=== PATIENT | male | born 1985 | race American Indian/Alaskan Native ===

== ENCOUNTER 2016-12-09 08:51 | Inpatient (IN) | payer SELFPAY ==
[2016-12-09] MEDS ORDERED: ZOFRAN IV ONE (10:29)
[2016-12-09] MEDS ORDERED: PEPCID IV ONE (10:29)
--- NOTE | 2016-12-09 10:31 | Emergency Department Report ---
ED General Adult HPI - General Chief complaint: Hyperglycemia Stated complaint: HIGH BLOOD SUGAR Time Seen by Provider: 12/09/16 10:24 Source: patient, EMS (ems notes not available at time of chart dictation), RN notes reviewed Mode of arrival: Stretcher Limitations: Physical Limitation - History of Present Illness Initial comments: This is a 31-year-old male, previously unknown to me. He does not have a primary care doctor. Has a past medical history of diabetes. Presents to the ER complaining of weakness, lethargy, nausea and vomiting, abdominal cramping. He reports compliance with his medications. He denies dietary indiscretions. He reports multiple episodes of nonbloody, nonbilious emesis. He is defecating normally. He has no testicular pain, and no irritative and obstructive urinary symptoms. No cough. -: Gradual Location: abdomen Severity scale (0 -10): 0 Quality: aching Consistency: constant Improves with: none Worsens with: none Associated Symptoms: loss of appetite, malaise, nausea/vomiting, weakness. denies: chest pain, cough, diaphoresis - Related Data Home Medications Medication Instructions Recorded Confirmed Last Taken Insulin Aspart Prot/Aspart 4 units SQ QACHS 12/09/16 12/09/16 Unknown [Novolog Mix 70/30] Insulin Detemir [Levemir VIAL] 20 unit SQ QHS 12/09/16 12/09/16 Unknown Previous Rx's Medication Instructions Recorded Last Taken Type Ciprofloxacin HCl [Cipro] 500 mg PO Q12H #20 tab 11/06/13 Unknown Rx HYDROcodone/APAP 7.5-325 [[place] 1 each PO Q6HR PRN #20 tablet 11/06/13 Unknown Rx 7.5/325 mg] Ondansetron [Zofran Odt] 4 mg PO Q4H PRN #10 tab.rapdis 11/06/13 Unknown Rx Allergies Allergy/AdvReac Type Severity Reaction Status Date / Time morphine Allergy Vomiting Verified 11/05/13 23:35 Penicillins Allergy Rash Verified 11/05/13 23:35 ED Review of Systems ROS: Stated complaint: HIGH BLOOD SUGAR Other details as noted in HPI Constitutional: malaise, weakness Eyes: denies: eye discharge ENT: denies: epistaxis Respiratory: denies: cough Cardiovascular: denies: chest pain Gastrointestinal: nausea, vomiting Genitourinary: denies: urgency, dysuria, testicular pain Musculoskeletal: myalgia Skin: denies: lesions Neurological: weakness Psychiatric: anxiety ED Past Medical Hx - Past Medical History Hx Diabetes: Yes Additional medical history: History of DKA - Surgical History Hx Cholecystectomy: Yes Additional Surgical History: thyroid surgery - Social History Smoking Status: Never Smoker - Medications Home Medications: Home Medications Medication Instructions Recorded Confirmed Last Taken Type Ciprofloxacin HCl [Cipro] 500 mg PO Q12H #20 tab 11/06/13 12/09/16 Unknown Rx HYDROcodone/APAP 7.5-325 [[place] 1 each PO Q6HR PRN #20 tablet 11/06/13 12/09/16 Unknown Rx 7.5/325 mg] Ondansetron [Zofran Odt] 4 mg PO Q4H PRN #10 tab.rapdis 11/06/13 12/09/16 Unknown Rx Insulin Aspart Prot/Aspart 4 units SQ QACHS 12/09/16 12/09/16 Unknown History [Novolog Mix 70/30] Insulin Detemir [Levemir VIAL] 20 unit SQ QHS 12/09/16 12/09/16 Unknown History ED Physical Exam - General Limitations: No Limitations General appearance: alert, in no apparent distress - Head Head exam: Present: atraumatic, normocephalic - Eye Eye exam: Present: normal appearance, EOMI. Absent: nystagmus - ENT ENT exam: Present: normal exam, normal orophraynx, mucous membranes moist, normal external ear exam - Neck Neck exam: Present: normal inspection, full ROM. Absent: tenderness, meningismus - Respiratory Respiratory exam: Present: normal lung sounds bilaterally. Absent: respiratory distress, wheezes, rales, rhonchi, stridor, decreased breath sounds - Cardiovascular Cardiovascular Exam: Present: normal rhythm, tachycardia, normal heart sounds. Absent: systolic murmur, diastolic murmur, rubs, gallop - GI/Abdominal GI/Abdominal exam: Present: soft, normal bowel sounds. Absent: distended, tenderness, guarding, rebound, rigid, pulsatile mass - Rectal Rectal exam: Present: deferred - Extremities Exam Extremities exam: Present: normal inspection, full ROM, normal capillary refill , other (numerous areas of discoloration in the upper and lower extremities. 2 + pulses noted in 4 extremities.). Absent: tenderness, pedal edema, joint swelling, calf tenderness - Back Exam Back exam: Present: normal inspection, full ROM. Absent: tenderness, CVA tenderness (R), CVA tenderness (L), muscle spasm, paraspinal tenderness, vertebral tenderness - Neurological Exam Neurological exam: Present: alert, oriented X3, other (Extraocular movements intact. Tongue midline. No facial droop. Facial sensation intact to light touch in the V1, V2, V3 distribution bilaterally. 5 and 5 strength in 4 extremities.. Sensation is intact to light touch in 4 extremities.). Absent: motor sensory deficit - Psychiatric Psychiatric exam: Present: normal affect, normal mood - Skin Skin exam: Present: warm, dry, intact, normal color. Absent: rash ED Course Vital Signs 12/09/16 12/09/16 12/09/16 09:01 09:09 09:15 Temperature 98.0 F Pulse Rate 116 H 116 H Respiratory 14 16 16 Rate Blood Pressure 173/86 Blood Pressure 173/86 [Right] O2 Sat by Pulse 96 96 Oximetry 12/09/16 12/09/16 12/09/16 10:00 11:00 11:20 Temperature Pulse Rate 106 H 114 H 113 H Respiratory 16 16 16 Rate Blood Pressure 148/86 151/82 151/82 Blood Pressure [Right] O2 Sat by Pulse 100 99 98 Oximetry 12/09/16 12/09/16 12:00 13:14 Temperature Pulse Rate 111 H 111 H Respiratory 12 15 Rate Blood Pressure 141/76 Blood Pressure 146/83 [Right] O2 Sat by Pulse 100 Oximetry - Reevaluation(s) Reevaluation #1: 12/09/16 11:25 Differential diagnosis: Diabetic ketoacidosis, hyperosmolar state, urinary tract infection, pneumonia Assessment and plan: 31-year-old male with nausea and vomiting, abdominal cramping, hyperglycemia, acidic venous pH, mostly diabetic ketoacidosis. IV fluids, symptomatically therapy, IV insulin ordered. Chest x-ray not consistent with pneumonia, urinalysis pending, basic metabolic panel is pending. Most likely to be admitted for presumed acidosis, diabetic ketoacidosis. Reevaluation #2: 12/09/16 11:47 Expected laboratory studies are consistent with hyperglycemic diabetic ketoacidosis. Acute renal failure is noted. Insulin drip ordered. Case discussed with the hospital physician, Dr. Mclain, who accepts the patient to his service. Case is discussed with critical care, Dr. Staples, who authorizes triaged to the ICU. ED Medical Decision Making - Lab Data Result diagrams: 12/09/16 10:58 12/09/16 11:54 Vital Signs 12/09/16 12/09/16 09:09 09:15 Temperature 98.0 F Pulse Rate 116 H Respiratory 16 16 Rate Blood Pressure 173/86 Blood Pressure 173/86 [Right] O2 Sat by Pulse 96 96 Oximetry Lab Results 12/09/16 12/09/16 12/09/16 Range/Units 09:25 10:58 10:58 WBC 10.1 (4.5-11.0) K/mm3 RBC 3.54 L (3.65-5.03) M/mm3 Hgb 10.9 L (11.8-15.2) gm/dl Hct 32.9 L (35.5-45.6) % MCV 93 (84-94) fl MCH 31 (28-32) pg MCHC 33 (32-34) % RDW 13.8 (13.2-15.2) % Plt Count 235 (140-440) K/mm3 Lymph % (Auto) 9.5 L (13.4-35.0) % [place] % (Auto) 3.4 (0.0-7.3) % Eos % (Auto) 0.1 (0.0-4.3) % Baso % (Auto) 0.3 (0.0-1.8) % Lymph # 1.0 L (1.2-5.4) K/mm3 [place] # 0.3 (0.0-0.8) K/mm3 Eos # 0.0 (0.0-0.4) K/mm3 Baso # 0.0 (0.0-0.1) K/mm3 Seg Neutrophils % 86.7 H (40.0-70.0) % Seg Neutrophils # 8.8 H (1.8-7.7) K/mm3 VBG pH 7.211 L (7.320-7.420) POC Glucose > 500 H (70-105) - EKG Data 12/09/16 11:26 Sinus tachycardia, motion artifact noted, premature ventricular contraction, borderline atrial enlargement, normal axis, QTC 440 ms, morphologically consistent with STEMI. - Radiology Data Radiology results: report reviewed, image reviewed X-ray chest negative Critical Care Time: Yes Critical care time in (mins) excluding proc time.: 35 Critical care attestation.: If time is entered above; I have spent that time in minutes in the direct care of this critically ill patient, excluding procedure time. Critical Care Time: Critical care time includes multiple bedside evaluations, interpretation of laboratory studies, radiology studies, time spent managing a critically ill patient with diabetic ketoacidosis requiring initiation of insulin drip. This excludes procedure time. ED Disposition Clinical Impression: DKA (diabetic ketoacidoses) Qualifiers: Diabetes mellitus type: other specified (including CHAI) Diabetes mellitus complication detail: without coma Qualified Code(s): E13.10 - Other specified diabetes mellitus with ketoacidosis without coma Acute renal failure Qualifiers: Acute renal failure type: unspecified Qualified Code(s): N17.9 - Acute kidney failure, unspecified Disposition: OP ADMITTED IP TO THIS HOSP Is pt being admited?: Yes Condition: Good
[2016-12-09] MEDS ORDERED: NACL 0.9% 1000 ML 2,000 ML ONE (10:46)
--- NOTE | 2016-12-09 10:46 | XRay Report ---
Single view chest: History: Weakness. Findings: Normal cardiomediastinal silhouette. Trachea is midline. No consolidation, pneumothorax or pleural effusion. Impression: No acute cardiopulmonary findings.
[2016-12-09] MEDS ORDERED: NACL 0.9% 500 ML IV SCH (11:00)
[2016-12-09 11:17] LABS: Basophils % (Auto) 0.3 % (0.0-1.8); Eosinophils % (Auto) 0.1 % (0.0-4.3); Hematocrit 32.9 % (35.5-45.6); Hemoglobin 10.9 gm/dl (11.8-15.2); Mean Corpuscular HGB Conc 33 % (32-34); Mean Corpuscular Hemoglobin 31 pg (28-32); Mean Corpuscular Volume 93 fl (84-94); Platelet Count 235 K/mm3 (140-440); Red Blood Count 3.54 M/mm3 (3.65-5.03); Red Cell Distribution Width 13.8 % (13.2-15.2); White Blood Count 10.1 K/mm3 (4.5-11.0)
[2016-12-09 11:38] LABS: BUN/Creatinine Ratio 14.82; Calcium 8.5 mg/dL (8.4-10.2); Chloride 93.2 mmol/L (98-107); Potassium 5.1 mmol/L (3.6-5.0)
[2016-12-09 11:41] LABS: B-Hydroxybutyrate 69.8 mg/dL (0.2-2.8)
[2016-12-09] MEDS ORDERED: D50W (25GM) IV PRN (11:50)
[2016-12-09] MEDS ORDERED: D5W/0.45% NACL/KCL 20 MEQ 1,000 ML IV SCH (12:00)
[2016-12-09] MEDS ORDERED: NovoLIN R 100 UNITS in NACL 0.9% 99 ML IV SCH (12:00)
[2016-12-09 12:24] LABS: BUN/Creatinine Ratio 16.4; Calcium 7.8 mg/dL (8.4-10.2); Chloride 100.4 mmol/L (98-107); Potassium 4.2 mmol/L (3.6-5.0)
[2016-12-09 12:33] LABS: Magnesium 2.5 mg/dL (1.7-2.3); Phosphorous 4.2 mg/dL (2.5-4.5)
--- NOTE | 2016-12-09 12:49 | Admit Criteria Form ---
Admission Criteria Documentation: DIABETES Clinical Indications for Admission to Inpatient Care (Place 'X' for any and all applicable criteria): Admission is indicated by presence of ALL (if I & II) or ANY ONE (if III or IV) of the following (1)(2)(3)(4): [ X]I. Diabetes is uncontrolled as indicated by ANY ONE of the following: [X ]a) Diabetic ketoacidosis as indicated by ALL of the following (8): [X ]i) Hyperglycemia (eg, plasma glucose greater than 200 mg /dL (11.1 mmol/L)) [ X]ii) Acidosis (eg, arterial pH less than 7.30, serum bicarbonate level less than 15 mEq/L (mmol/L)) [ X]iii) Moderate ketonuria or ketonemia [ ]b) Hyperglycemic hyperosmolar state as indicated by ALL of the following(9)(10): [ ]i) Neurologic dysfunction (eg, stupor, coma, hemiparesis , seizure)(13) [ ]ii) Plasma glucose greater than 600 mg/dL (33.3 mmol/L) [ ]iii) Serum osmolality greater than 320 mOsm/kg (mmol/kg) [ ]c) Severe signs or symptoms secondary to hyperglycemia indicated by ANY ONE of the following: [ ]i) Altered mental status(10) [ ]ii) Significant hypovolemia or dehydration [ ]iii) Intractable nausea or vomiting [ ]iv) Unexplained fever or severe infection [ ]v) Severe electrolyte abnormality (eg, hypokalemia, hyperkalemia, hypernatremia) [X ]II. Management at other levels of care (Also use Diabetes: Observation Care as appropriate) is not feasible because of ANY ONE of the following: [X ]a) Condition was not adequately corrected with treatment at other levels of care. [ ]b) Treatment at other levels of care is not appropriate because of condition severity (eg, hyperosmolar coma). [ ]III. Contraindications and/or Inappropriate clinical situations for Observational Care in patients with Diabetes, when ANY ONE of the following is required: [ ]a) Patient require specific diagnostic workup or therapeutic intervention 22 [ ]b) Patient with abnormal vital signs or altered mental status 23 [ ]IV. General contraindications and/or Inappropriate clinical situations for Observational Care in patients with Diabetes, when ANY ONE of the following is required: [ ]a) Prediction of prolongation of LOS based on ANY ONE of the following may be considered as a contraindication for observational care 2, 3, 4, 5, 6, 7, 8, 9, 10, 11 [ ]i) Age > 65 yrs. [ ]ii) Patient arriving by ambulance [ ]iii) Patient with high acuity [ ]iv) Patient requiring vital sign monitoring [ ]v) Patient on IV medication [ ]b) Systolic blood pressures 180mmHg 3,12 [ ]c) Patient with altered mental status including delirium and other alteration of consciousness, (3) [ ]d) Patient whose discharge disposition will be to a longterm home or rehabilitation home should not be managed in Emergency Department Observation Unit. CMS rule requires 3 days hospital stay before such placement.3,13 [ ]e) Patient with failure to thrive due to broad array of etiologies 3,16,17 [ ]f) Inability to ambulate 3,14 Extended stay beyond goal length of stay may be needed for(3)(20): [ ]a) Treatment of precipitating causes [ ]b) Development of hypoglycemia [ ]c) Complications of treatment [ ]d) Complications of decompensated diabetes (eg, acute gastric dilatation, persistent metabolic or neurologic derangement) [ ]e) Active Comorbidities [ ]f) Older patients( 65 years or older) The original [employer] content created by [employer] has been revised. The portions of the content which have been revised are identified through the use of italic text or in bold,and [facility] has neither reviewed nor approved the modified material. All other unmodified content is copyright [employer]. Please see references footnoted in the original [facility] edition 2016 Admission Criteria Met: Yes
--- NOTE | 2016-12-09 14:43 | Consultation ---
History of Present Illness - Reason for Consult Consult date: 12/09/16 DKA requiring insulin drip - History of Present Illness 31 y/o male admitted with DKA Medications and Allergies Allergies Allergy/AdvReac Type Severity Reaction Status Date / Time morphine Allergy Vomiting Verified 11/05/13 23:35 Penicillins Allergy Rash Verified 11/05/13 23:35 Home Medications Medication Instructions Recorded Confirmed Last Taken Type Ciprofloxacin HCl [Cipro] 500 mg PO Q12H #20 tab 11/06/13 12/09/16 Unknown Rx HYDROcodone/APAP 7.5-325 [[place] 1 each PO Q6HR PRN #20 tablet 11/06/13 12/09/16 Unknown Rx 7.5/325 mg] Ondansetron [Zofran Odt] 4 mg PO Q4H PRN #10 tab.rapdis 11/06/13 12/09/16 Unknown Rx Insulin Aspart Prot/Aspart 4 units SQ QACHS 12/09/16 12/09/16 Unknown History [Novolog Mix 70/30] Insulin Detemir [Levemir VIAL] 20 unit SQ QHS 12/09/16 12/09/16 Unknown History Active Meds: Active Medications Dextrose (D50w (25gm)) 0 ml IV PRN PRN PRN Reason: Hypoglycemia Heparin Sodium (Porcine) (Heparin) 5,000 unit SUB-Q Q12HR OXANA Insulin Human Regular 100 (units/ Sodium Chloride) 100 mls @ 1 mls/hr IV TITR OXANA; 1 UNITS/HR PRN Reason: Protocol Last Titration: 12/09/16 14:06 Dose: 6 units/hr Potassium Chloride/Dextrose/Sod Cl (D5w/0.45% Nacl/Kcl 20 Meq) 1,000 mls @ 125 mls/hr IV DIRECT OXANA Ondansetron HCl (Zofran) 4 mg IV Q4HR OXANA Sodium Chloride (Nacl 0.9% 500 Ml) 2,000 ml IV NOW OXANA Last Admin: 12/09/16 11:03 Dose: 2,000 ml Exam - Constitutional Vitals: Temp Pulse Resp BP Pulse Ox 98.0 F 111 H 15 158/94 100 12/09/16 09:09 12/09/16 14:00 12/09/16 14:27 12/09/16 14:00 12/09/16 14:27 Results - Labs CBC & Chem 7: 12/09/16 10:58 12/09/16 19:43 Labs: Abnormal lab results 12/09/16 Range/Units 14:04 POC Glucose 326 H (70-105) - Imaging and Cardiology Chest x-ray: image reviewed (clear CXR) Assessment and Plan 31 y/o male with DKA 1. q6hour BMP's 2. IVF resuscitation, once sugar is below 250, switch to D5, may need K replacement 3. NPO 4. Once anion gap is less than 14-15, transition to sub-q insulin and feed patient 5. Once tolerating PO, off drip and gap closed, transition to floor CCT 31 minutes
[2016-12-09] MEDS: ZOFRAN IV SCH ×3 (14:52→23:04)
[2016-12-09 14:56] LABS: BUN/Creatinine Ratio 15.6; Calcium 8.1 mg/dL (8.4-10.2); Chloride 109.7 mmol/L (98-107); Potassium 4.4 mmol/L (3.6-5.0)
--- NOTE | 2016-12-09 15:01 | History and Physical Report ---
History of Present Illness Date of examination: 12/09/16 Date of admission: 12/09/16 12:43 Chief complaint: Nausea vomiting History of present illness: Patient is 31-year-old man with history of insulin-dependent diabetes mellitus and DKA who presents with intractable severe acute onset worsening intermittent nausea and nonbloody vomiting that started today without any aggravating or relieving factors. The last week or so he had a cold that he does not have fevers chills. Patient denies any severe headaches or chest pain or shortness of breath. Patient states he was compliant with his medication. Past History Past Medical History: diabetes Past Surgical History: cholecystectomy, Other (thyroid surgery) Social history: full code. denies: smoking, alcohol abuse, prescription drug abuse, IV drug use Family history: diabetes, hypertension Medications and Allergies Allergies Allergy/AdvReac Type Severity Reaction Status Date / Time morphine Allergy Vomiting Verified 11/05/13 23:35 Penicillins Allergy Rash Verified 11/05/13 23:35 Home Medications Medication Instructions Recorded Confirmed Last Taken Type Ciprofloxacin HCl [Cipro] 500 mg PO Q12H #20 tab 11/06/13 12/09/16 Unknown Rx HYDROcodone/APAP 7.5-325 [[place] 1 each PO Q6HR PRN #20 tablet 11/06/13 12/09/16 Unknown Rx 7.5/325 mg] Ondansetron [Zofran Odt] 4 mg PO Q4H PRN #10 tab.rapdis 11/06/13 12/09/16 Unknown Rx Insulin Aspart Prot/Aspart 4 units SQ QACHS 12/09/16 12/09/16 Unknown History [Novolog Mix 70/30] Insulin Detemir [Levemir VIAL] 20 unit SQ QHS 12/09/16 12/09/16 Unknown History Active Meds: Active Medications Dextrose (D50w (25gm)) 0 ml IV PRN PRN PRN Reason: Hypoglycemia Heparin Sodium (Porcine) (Heparin) 5,000 unit SUB-Q Q12HR OXANA Insulin Human Regular 100 (units/ Sodium Chloride) 100 mls @ 1 mls/hr IV TITR OXANA; 1 UNITS/HR PRN Reason: Protocol Last Titration: 12/09/16 14:06 Dose: 6 units/hr Potassium Chloride/Dextrose/Sod Cl (D5w/0.45% Nacl/Kcl 20 Meq) 1,000 mls @ 125 mls/hr IV DIRECT OXANA Ondansetron HCl (Zofran) 4 mg IV Q4HR [facility] Sodium Chloride (Nacl 0.9% 500 Ml) 2,000 ml IV NOW [facility] Last Admin: 12/09/16 11:03 Dose: 2,000 ml Review of Systems All systems: negative (as HPI and all other ROS reviewed and negative.) Exam - Physical Exam Narrative exam: GEN: Ill-appearing NAD, AWAKE, ALERT, ORIENTATED 3 HEENT: NCAT, PERRL, EOMI, OP CLEAR but dry NECK: SUPPLE, NO THYROMEGALY, NO JVD, NO LAD CVS: Regular tachycardia, NORMAL S1S2 LUNGS/CHEST: CTA B, NORMAL CHEST EXPANSION B, GOOD AIR ENTRY B ABD: SOFT NTND, GBS, NO REBOUND OR GUARDING EXT/SKIN: NO SIGNIFICANT EDEMA OR RASH, severe mucous membranes dry MSK: FROM X 4 EXTREMITIES NEURO: CN 2-12 GROSSLY INTACT, NO FOCAL DEFICITS PSY: CALM - Constitutional Vitals: Temp Pulse Resp BP Pulse Ox 98.0 F 111 H 15 158/94 100 12/09/16 09:09 12/09/16 14:00 12/09/16 14:27 12/09/16 14:00 12/09/16 14:27 Results - Labs CBC & Chem 7: 12/09/16 10:58 12/09/16 11:54 Labs: Abnormal lab results 12/09/16 Range/Units 14:04 POC Glucose 326 H (70-105) - Imaging and Cardiology Chest x-ray: report reviewed Assessment and Plan Patient is 31-year-old man with history of insulin-dependent diabetes mellitus and DKA who presents with intractable severe acute onset worsening intermittent nausea and nonbloody vomiting that started today without any aggravating or relieving factors. The last week or so he had a cold that he does not have fevers chills. Patient denies any severe headaches or chest pain or shortness of breath. Patient states he was compliant with his medication. 1. DKA: IV fluids, insulin drip protocol 2. Acute renal failure due to vasomotor nephropathy present on admission: Consult nephrology, get renal ultrasound and hydrate 3. Urinary tract infection with sepsis: Cultures, IV antibiotics 4. DVT prophylaxis: Subcutaneous heparin 5. GI prophylaxis: Protonix Full code Disposition: Inpatient care to the ICU, consult automatic spinning lathe setter per protocol
[2016-12-09 15:41] LABS: BUN/Creatinine Ratio 15.2; Chloride 108.1 mmol/L (98-107); Potassium 4.3 mmol/L (3.6-5.0)
[2016-12-09] MEDS ORDERED: TYLENOL PR ONE (17:00)
[2016-12-09] MEDS ORDERED: LEVAQUIN 500MG/100ML 100 ML IV SCH (17:00)
[2016-12-09] MEDS ORDERED: PHENERGAN PR ONE (17:00)
[2016-12-09 17:53] LABS: BUN/Creatinine Ratio 14.8; Calcium 8.5 mg/dL (8.4-10.2); Chloride 108.2 mmol/L (98-107); Potassium 4.4 mmol/L (3.6-5.0)
[2016-12-09 21:02] LABS: BUN/Creatinine Ratio 14.4; Calcium 8.2 mg/dL (8.4-10.2); Chloride 113.6 mmol/L (98-107); Potassium 4.8 mmol/L (3.6-5.0)
--- NOTE | 2016-12-09 21:03 | Ultrasound Report ---
FINAL REPORT PROCEDURE: US RENAL BILAT TECHNIQUE: Real-time sonography in multiple planes of the kidneys, ureters and urinary bladder was performed with image documentation. CPT 62095 HISTORY: Acute renal failure COMPARISON: No prior studies are available for comparison. FINDINGS: The right kidney measures 10.0 x 4.8 x 5.0 centimeters. The left kidney measures 11.2 x 4.8 x 5.0 centimeters. There is no evidence of hydronephrosis or echogenic calculi in the left or right kidney. Both kidneys show no contour abnormality by ultrasound. Limited survey images of the urinary bladder show no ultrasound abnormality IMPRESSION: Both kidneys show no ultrasound abnormality..
--- NOTE | 2016-12-09 21:43 | Consultation ---
History of Present Illness - Reason for Consult Consult date: 12/09/16 acute renal failure - History of Present Illness Patient is 31 year old AAM with history significant for insulin-dependent diabetes mellitus and DKA who presents with intractable nausea, vomiting and feeling unwell that started yesterday. Patient had cold symptoms last week. On admission his blood sugar was high with positive ketone and creatinine of 2.9. Since then the creatinine has improved to 2.5 and remain stable. His creatinine was normal about 3 years ago. Denies any prior kidney problem. His pcp is at [facility]. No h/o fever, rash, dysuria, hematuria, jaundice, dizziness , syncope, leg swelling, cp, sob, cough or confusion. Past History Past Medical History: diabetes Past Surgical History: cholecystectomy, Other (thyroid surgery) Social history: full code. denies: smoking, alcohol abuse, prescription drug abuse, IV drug use Family history: diabetes, hypertension Medications and Allergies Allergies Allergy/AdvReac Type Severity Reaction Status Date / Time morphine Allergy Vomiting Verified 11/05/13 23:35 Penicillins Allergy Rash Verified 11/05/13 23:35 Home Medications Medication Instructions Recorded Confirmed Last Taken Type Ciprofloxacin HCl [Cipro] 500 mg PO Q12H #20 tab 11/06/13 12/09/16 Unknown Rx HYDROcodone/APAP 7.5-325 [[place] 1 each PO Q6HR PRN #20 tablet 11/06/13 12/09/16 Unknown Rx 7.5/325 mg] Ondansetron [Zofran Odt] 4 mg PO Q4H PRN #10 tab.rapdis 11/06/13 12/09/16 Unknown Rx Insulin Aspart Prot/Aspart 4 units SQ QACHS 12/09/16 12/09/16 Unknown History [Novolog Mix 70/30] Insulin Detemir [Levemir VIAL] 20 unit SQ QHS 12/09/16 12/09/16 Unknown History Active Meds: Active Medications Dextrose (D50w (25gm)) 0 ml IV PRN PRN PRN Reason: Hypoglycemia Heparin Sodium (Porcine) (Heparin) 5,000 unit SUB-Q Q12HR OXANA Insulin Human Regular 100 (units/ Sodium Chloride) 100 mls @ 1 mls/hr IV TITR OXANA; 1 UNITS/HR PRN Reason: Protocol Last Titration: 12/09/16 18:14 Dose: 0.5 units/hr Potassium Chloride/Dextrose/Sod Cl (D5w/0.45% Nacl/Kcl 20 Meq) 1,000 mls @ 125 mls/hr IV DIRECT [facility] Last Admin: 12/09/16 16:56 Dose: 125 mls/hr Levofloxacin/Dextrose (Levaquin 500mg/100ml) 100 mls @ 100 mls/hr IV Q48H [facility] PRN Reason: Protocol Last Admin: 12/09/16 17:54 Dose: 100 mls/hr Ondansetron HCl (Zofran) 4 mg IV Q4HR [facility] Last Admin: 12/09/16 17:58 Dose: 4 mg Pantoprazole Sodium (Protonix) 40 mg IV QDAY [facility] Sodium Chloride (Nacl 0.9% 500 Ml) 2,000 ml IV NOW [facility] Last Admin: 12/09/16 11:03 Dose: 2,000 ml Review of Systems Constitutional: fatigue, malaise, no weight loss, no weight gain Ears, nose, mouth and throat: no sinus pressure, no sinus pain, no epistaxis Cardiovascular: no chest pain, no orthopnea, no edema, no syncope, no lightheadedness, no shortness of breath Respiratory: no cough, no hemoptysis, no shortness of breath Gastrointestinal: nausea, vomiting, no abdominal pain, no diarrhea, no melena Genitourinary Male: no dysuria, no hematuria Rectal: no bleeding Musculoskeletal: no neck stiffness, no redness of joints Integumentary: no rash, no jaundice Neurological: no head injury, no paralysis, no syncope Psychiatric: no confusion Endocrine: polyuria Hematologic/Lymphatic: no easy bruising, no easy bleeding Allergic/Immunologic: no wheezing Exam - Vital Signs Vital signs: Vital Signs Pulse Resp 116 H 14 12/09/16 09:01 12/09/16 09:01 - General Appearance General appearance: well-developed, well-nourished, other (no distress) EENT: PERRL, mucous membranes dry, hearing intact, vision intact Neck: Present: neck supple, trachea midline Respiratory: Clear to Ascultation Heart: regular, normal heart rate, S1S2 Gastrointestinal: Present: normoactive bowel sounds. Absent: tenderness, distended, guarding Integumentary: no rash, warm and dry Neurologic: no focal deficit, no asterixis, alert and oriented x3 Musculoskeletal: Present: other (no edema) Psychiatric: mood/affect appropriate, cooperative Results - Lab Results 12/09/16 10:58 12/09/16 19:43 Most recent lab results Calcium 8.2 mg/dL (8.4-10.2) L 12/09/16 19:43 Phosphorus 4.2 mg/dL (2.5-4.5) 12/09/16 11:54 Magnesium 2.5 mg/dL (1.7-2.3) H 12/09/16 11:54 Assessment and Plan - Patient Problems (1) TROY (acute kidney injury) Current Visit: Yes Status: Acute Plan to address problem: TROY likely in the setting of DKA. Continue IV fluids. Monitor renal function. Suspect some degree of CKD. (2) DKA (diabetic ketoacidoses) Current Visit: Yes Status: Acute Qualifiers: Diabetes mellitus type: other specified (including CHAI) Diabetes mellitus complication detail: without coma Qualified Code(s): E13.10 - Other specified diabetes mellitus with ketoacidosis without coma Plan to address problem: On Insulin drip and IV fluids. (3) Volume depletion Current Visit: Yes Status: Acute
[2016-12-10] MEDS: ZOFRAN IV SCH (02:29)
[2016-12-10] MEDS ORDERED: PROTONIX IV SCH (10:00)
[2016-12-10] MEDS ORDERED: NOVOLOG SUB-Q ONE (11:24)
--- NOTE | 2016-12-10 14:09 | Progress Note ---
Assessment and Plan 31 y/o male with DKA 1. Ok with long acting insulin 2. Stop Insulin drip 3. Feed patient 4. If tolerates PO, transition to the floor. CCT 31 minutes Subjective Date of service: 12/10/16 Interval history: No acute events. Anion Gap closed. Objective - Constitutional General appearance: Present: no acute distress, well-nourished - EENT Eyes: PERRL, EOM intact - Neck Neck: supple - Respiratory Respiratory effort: normal Respiratory: bilateral: CTA - Cardiovascular Rhythm: regular Heart Sounds: Present: S1 & S2 Extremities: no ischemia - Gastrointestinal General gastrointestinal: Present: soft Rectal Exam: deferred - Genitourinary Male genitourinary: deferred - Musculoskeletal Musculoskeletal: strength equal bilaterally - Neurologic Neurologic: CNII-XII intact - Labs CBC & Chem 7: 12/09/16 10:58 12/09/16 19:43 Labs: Abnormal lab results 12/09/16 12/09/16 12/09/16 Range/Units 14:04 14:24 14:47 Sodium 147 H D (137-145) mmol/L Chloride 109.7 H 108.1 H (98-107) mmol/L Carbon Dioxide 21 L (22-30) mmol/L BUN 39 H 38 H (9-20) mg/dL Creatinine 2.5 H 2.5 H (0.8-1.5) mg/dL Glucose 326 H 281 H (75-100) mg/dL POC Glucose 326 H (70-105) Calcium 8.1 L 8.0 L (8.4-10.2) mg/dL 12/09/16 12/09/16 12/09/16 Range/Units 14:49 16:14 16:59 Sodium (137-145) mmol/L Chloride 108.2 H (98-107) mmol/L Carbon Dioxide (22-30) mmol/L BUN 37 H (9-20) mg/dL Creatinine 2.5 H (0.8-1.5) mg/dL Glucose 144 H (75-100) mg/dL POC Glucose 287 H 170 H (70-105) Calcium (8.4-10.2) mg/dL 12/09/16 12/09/16 12/09/16 Range/Units 17:14 19:43 20:07 Sodium 150 H (137-145) mmol/L Chloride 113.6 H (98-107) mmol/L Carbon Dioxide 21 L (22-30) mmol/L BUN 36 H (9-20) mg/dL Creatinine 2.5 H (0.8-1.5) mg/dL Glucose 116 H (75-100) mg/dL POC Glucose 139 H 130 H (70-105) Calcium 8.2 L (8.4-10.2) mg/dL 12/09/16 12/09/16 12/10/16 Range/Units 21:04 23:14 00:04 Sodium (137-145) mmol/L Chloride (98-107) mmol/L Carbon Dioxide (22-30) mmol/L BUN (9-20) mg/dL Creatinine (0.8-1.5) mg/dL Glucose (75-100) mg/dL POC Glucose 119 H 115 H 126 H (70-105) Calcium (8.4-10.2) mg/dL 12/10/16 12/10/16 12/10/16 Range/Units 00:59 02:03 03:10 Sodium (137-145) mmol/L Chloride (98-107) mmol/L Carbon Dioxide (22-30) mmol/L BUN (9-20) mg/dL Creatinine (0.8-1.5) mg/dL Glucose (75-100) mg/dL POC Glucose 132 H 153 H 120 H (70-105) Calcium (8.4-10.2) mg/dL 12/10/16 12/10/16 12/10/16 Range/Units 05:14 06:09 13:19 Sodium (137-145) mmol/L Chloride (98-107) mmol/L Carbon Dioxide (22-30) mmol/L BUN (9-20) mg/dL Creatinine (0.8-1.5) mg/dL Glucose (75-100) mg/dL POC Glucose 176 H 196 H 46 L (70-105) Calcium (8.4-10.2) mg/dL
[2016-12-10 14:49] LABS: BUN/Creatinine Ratio 11.73; Calcium 7.9 mg/dL (8.4-10.2); Chloride 110.2 mmol/L (98-107); Phosphorous 3.3 mg/dL (2.5-4.5); Potassium 4.2 mmol/L (3.6-5.0)
--- NOTE | 2016-12-10 16:03 | Discharge Summary ---
Providers - Providers Date of Admission: 12/09/16 12:43 Attending physician: ADELAIDA CONNOLLY 12/09/16 15:01 Consult to Physician [CONS] Routine Consulting Provider: BLANCA RAUSCH Reason For Exam: arf Place consult to:: Marlys MAURICIO Notified:: yes Phone number called:: [phone] Was contact made?: Yes Time called:: 15:30 Primary care physician: ROCK LA MD Hospitalization Condition: Good Disposition: STILL A PATIENT Exam - Constitutional Vitals: Temp Pulse Resp BP Pulse Ox 98.3 F 87 13 133/82 100 12/10/16 00:00 12/10/16 15:01 12/10/16 15:01 12/10/16 15:01 12/10/16 15:01 Plan Follow up with: ROCK LA MD [Primary Care Provider] - 3-5 Days
[2016-12-10 16:15] VITALS: BP 144/100
[2016-12-10] MEDS ORDERED: NOVOLOG SUB-Q SCH (16:30)
[2016-12-10] MEDS ORDERED: HEPARIN SUB-Q SCH (22:00)
[2016-12-11] MEDS ORDERED: PROTONIX PO SCH (10:00)
== END 2016-12-10 17:22 | disposition home or self-care (01) | DRG 871 ==
LOC: ED 08:51 → CC1 12:43
PROVIDERS: ADMIT Internal Medicine; ATTEND Internal Medicine
DX: A41.9 Sepsis, unspecified organism (principal); N17.0 Acute kidney failure with tubular necrosis; E13.10 Other specified diabetes mellitus with ketoacidosis without coma; N39.0 Urinary tract infection, site not specified; E86.9 Volume depletion, unspecified; Z88.6 Allergy status to analgesic agent; Z88.0 Allergy status to penicillin; Z79.4 Long term (current) use of insulin; Z90.49 Acquired absence of other specified parts of digestive tract; Z83.3 Family history of diabetes mellitus; Z82.49 Family history of ischemic heart disease and other diseases of the circulatory system
CPT/HCPCS: 36415; 71010; 76770; 80048; 82010; 82805; 82962; 83735; 84100; 85025; 87040; 96374; 96375; 99291; C9113; J1815; J1956; J2405; J7030

== ENCOUNTER 2017-12-28 11:49 | Inpatient (IN) | payer SELFPAY ==
[2017-12-28 12:56] LABS: Basophils % (Auto) 0.4 % (0.0-1.8); Eosinophils # (Auto) 0.1 K/mm3 (0.0-0.4); Eosinophils % (Auto) 0.8 % (0.0-4.3); Hematocrit 39.3 % (35.5-45.6); Hemoglobin 13.2 gm/dl (11.8-15.2); Lymphocytes # (Auto) 0.7 K/mm3 (1.2-5.4); Lymphocytes % (Auto) 7.5 % (13.4-35.0); Mean Corpuscular HGB Conc 34 % (32-34); Mean Corpuscular Hemoglobin 29 pg (28-32); Mean Corpuscular Volume 87 fl (84-94); Monocytes # (Auto) 0.4 K/mm3 (0.0-0.8); Monocytes % (Auto) 4.1 % (0.0-7.3); Platelet Count 145 K/mm3 (140-440); Red Cell Distribution Width 14.1 % (13.2-15.2)
[2017-12-28 13:06] LABS: Bacteria,Urine 1+ /HPF (Negative); Bilirubin,Urine NEG (Negative); Blood,Urine NEG (Negative); Color,Urine Yellow (Yellow); Mucus,Urine FEW /HPF; Nitrite,Urine NEG (Negative); Urobilinogen,Urine < 2.0 mg/dL (<2.0)
[2017-12-28 13:07] LABS: Protein,Urine >500 mg/dL (Negative)
[2017-12-28 13:13] LABS: Calcium 7.2 mg/dL (8.4-10.2)
[2017-12-28] MEDS ORDERED: D50W (25GM) Syringe IV ONE (17:50)
[2017-12-28] MEDS ORDERED: PROVENTIL IH ONE (17:52)
[2017-12-28] MEDS ORDERED: NACL 0.9% 1000 ML 1,000 ML IV ONE ×2 (17:58→19:27)
[2017-12-28] MEDS ORDERED: CALCIUM GLUCONATE 2,000 MG in NACL 0.9% 100 ML IV ONE (18:57)
[2017-12-28] MEDS ORDERED: ZOFRAN ONE (18:59)
--- NOTE | 2017-12-28 19:55 | Emergency Department Report ---
- General Chief complaint: Hyperglycemia Stated complaint: FLU LIKE SYMPTOMS Time Seen by Provider: 12/28/17 16:54 Source: patient (Generalized weakness and nausea started a couple of days ago after his dialysis. He is on dialysis three times a week. He missed Thursday session because of illness. He is on Levemir and Humalog for DM but did not take Humalog since Thursday because of low blood sugar. However, this morning his blood sugar was high.), EMS Mode of arrival: Ambulatory Limitations: No Limitations - History of Present Illness Severity scale (0 -10): 0 - Related Data Home Medications Medication Instructions Recorded Confirmed Last Taken Insulin Aspart Prot/Aspart(Nf) 4 units SQ QACHS 12/09/16 12/09/16 Unknown [Novolog Mix 70/30] Insulin Detemir [Levemir VIAL] 20 unit SQ QHS 12/09/16 12/09/16 Unknown Previous Rx's Medication Instructions Recorded Last Taken Type Ciprofloxacin HCl [Cipro] 500 mg PO Q12H #20 tab 11/06/13 Unknown Rx HYDROcodone/APAP 7.5-325 [[place] 1 each PO Q6HR PRN #20 tablet 11/06/13 Unknown Rx 7.5/325 mg] Ondansetron [Zofran Odt] 4 mg PO Q4H PRN #10 tab.rapdis 11/06/13 Unknown Rx Allergies Allergy/AdvReac Type Severity Reaction Status Date / Time Penicillins Allergy Rash Verified 11/05/13 23:35 ED Review of Systems ROS: Stated complaint: FLU LIKE SYMPTOMS Other details as noted in HPI Constitutional: denies: chills, fever Eyes: denies: eye pain, eye discharge, vision change ENT: denies: ear pain, throat pain Respiratory: denies: cough, shortness of breath, wheezing Cardiovascular: denies: chest pain, palpitations Endocrine: no symptoms reported Gastrointestinal: nausea, vomiting. denies: abdominal pain, diarrhea Genitourinary: denies: urgency, dysuria Musculoskeletal: denies: back pain, joint swelling, arthralgia Skin: denies: rash, lesions Neurological: weakness. denies: headache, paresthesias Psychiatric: denies: anxiety, depression Hematological/Lymphatic: denies: easy bleeding, easy bruising ED Past Medical Hx - Past Medical History Previous Medical History?: Yes Hx Hypertension: Yes Hx Congestive Heart Failure: No Hx Diabetes: Yes Hx Renal Disease: Yes (tues, thurs, sat) Hx Asthma: No Hx COPD: No Additional medical history: History of DKA - Surgical History Past Surgical History?: Yes Hx Cholecystectomy: Yes Additional Surgical History: thyroid surgery. vas cath to right chest wall - Social History Smoking Status: Never Smoker Substance Use Type: None - Medications Home Medications: Home Medications Medication Instructions Recorded Confirmed Last Taken Type Ciprofloxacin HCl [Cipro] 500 mg PO Q12H #20 tab 11/06/13 12/09/16 Unknown Rx HYDROcodone/APAP 7.5-325 [[place] 1 each PO Q6HR PRN #20 tablet 11/06/13 12/09/16 Unknown Rx 7.5/325 mg] Ondansetron [Zofran Odt] 4 mg PO Q4H PRN #10 tab.rapdis 11/06/13 12/09/16 Unknown Rx Insulin Aspart Prot/Aspart(Nf) 4 units SQ QACHS 12/09/16 12/09/16 Unknown History [Novolog Mix 70/30] Insulin Detemir [Levemir VIAL] 20 unit SQ QHS 12/09/16 12/09/16 Unknown History ED Physical Exam - General Limitations: No Limitations General appearance: alert, in no apparent distress - Head Head exam: Present: atraumatic, normocephalic - Eye Eye exam: Present: normal appearance - ENT ENT exam: Present: mucous membranes dry - Neck Neck exam: Present: normal inspection - Respiratory Respiratory exam: Present: normal lung sounds bilaterally. Absent: respiratory distress - Cardiovascular Cardiovascular Exam: Present: regular rate, normal rhythm. Absent: systolic murmur, diastolic murmur, rubs, gallop - GI/Abdominal GI/Abdominal exam: Present: soft, normal bowel sounds - Rectal Rectal exam: Present: deferred - Extremities Exam Extremities exam: Present: normal inspection - Back Exam Back exam: Present: normal inspection - Neurological Exam Neurological exam: Present: alert, oriented X3 - Psychiatric Psychiatric exam: Present: normal affect, normal mood - Skin Skin exam: Present: warm, dry, intact, normal color. Absent: rash ED Course Vital Signs 12/28/17 12/28/17 12/28/17 11:57 16:50 17:00 Temperature 98.7 F Pulse Rate 99 H 96 H 93 H Pulse Rate [ Anterior Bilateral Throughout] Respiratory 18 18 15 Rate Respiratory Rate [Anterior Bilateral Throughout] Blood Pressure 157/107 171/126 Blood Pressure [Left] O2 Sat by Pulse 99 99 99 Oximetry 12/28/17 12/28/17 12/28/17 17:15 17:30 17:46 Temperature Pulse Rate 91 H 95 H 94 H Pulse Rate [ Anterior Bilateral Throughout] Respiratory 13 10 L 12 Rate Respiratory Rate [Anterior Bilateral Throughout] Blood Pressure 178/120 183/125 183/125 Blood Pressure [Left] O2 Sat by Pulse 99 99 Oximetry 12/28/17 12/28/17 12/28/17 18:00 18:16 18:27 Temperature Pulse Rate 96 H 95 H Pulse Rate [ 99 H Anterior Bilateral Throughout] Respiratory 14 12 Rate Respiratory 20 Rate [Anterior Bilateral Throughout] Blood Pressure 183/125 183/125 Blood Pressure [Left] O2 Sat by Pulse 99 99 Oximetry 12/28/17 12/28/17 12/28/17 18:28 18:30 18:37 Temperature 98.0 F Pulse Rate 98 H 99 H Pulse Rate [ 97 H Anterior Bilateral Throughout] Respiratory 15 13 Rate Respiratory 18 Rate [Anterior Bilateral Throughout] Blood Pressure 174/105 Blood Pressure 182/107 [Left] O2 Sat by Pulse 99 100 Oximetry 12/28/17 12/28/17 12/28/17 18:45 19:00 19:15 Temperature Pulse Rate 107 H 109 H 110 H Pulse Rate [ Anterior Bilateral Throughout] Respiratory 15 11 L 15 Rate Respiratory Rate [Anterior Bilateral Throughout] Blood Pressure 186/113 167/105 160/102 Blood Pressure [Left] O2 Sat by Pulse 100 99 99 Oximetry 12/28/17 12/28/17 12/28/17 19:30 19:46 20:00 Temperature Pulse Rate 110 H 108 H 112 H Pulse Rate [ Anterior Bilateral Throughout] Respiratory 15 15 14 Rate Respiratory Rate [Anterior Bilateral Throughout] Blood Pressure 160/102 160/102 160/102 Blood Pressure [Left] O2 Sat by Pulse 98 98 98 Oximetry ED Medical Decision Making - Lab Data Result diagrams: 12/28/17 12:21 12/28/17 19:30 Critical care attestation.: If time is entered above; I have spent that time in minutes in the direct care of this critically ill patient, excluding procedure time. ED Disposition Clinical Impression: Hyperglycemia due to type 1 diabetes mellitus Renal failure Qualifiers: Renal failure chronicity: chronic Chronic kidney disease stage: unspecified stage Qualified Code(s): N18.9 - Chronic kidney disease, unspecified Disposition: OP ADMIT IP TO THIS HOSP Is pt being admited?: Yes Does the pt Need Aspirin: No Condition: Stable Instructions: Diabetes Mellitus Type 2 in Adults (ED) Referrals: PRIMARY CARE, [Primary Care Provider] - 3-5 Days Time of Disposition: 21:59
[2017-12-28 20:09] LABS: Calcium 7.6 mg/dL (8.4-10.2)
--- NOTE | 2017-12-28 22:35 | History and Physical Report ---
History of Present Illness Date of examination: 12/28/17 History of present illness: 32-year-old man with a history of end-stage renal disease on dialysis, Thursday, , Thursday, diabetes comes to emergency room because he missed dialysis on Thursday because he started feeling weak, nausea vomiting 4-5 times a day. No recent antibiotic, no fever no chills Review Of Systems: Constitutional: no weight loss Ears, eyes, nose, mouth and throat: no nasal congestion, no nasal discharge, no sinus pressure, blurry vision, diplopia Neck: No neck pain or rigidity. Cardiovascular: chest pain, orthopnea, palpitations Respiratory: No shortness of breath, cough Gastrointestinal: abdominal pain, hematochezia Genitourinary : no dysuria, frequency , hematuria Musculoskeletal: no muscle ache Integumentary: no rash, no pruritis Neurological: no parathesias, focal weakness Endocrine: no cold or heat intolerance, no polyuria or polydipsia Hematologic/Lymphatic: no easy bruising, no easy bleeding, no gland swelling Allergic/Immunologic: no urticaria, no angioedema. PAST MEDICAL HISTORY:end-stage renal disease on dialysis, diabetes PAST SURGICAL HISTORY: Cholecystectomy, thyroidectomy FAMILY HISTORY: Hypertension SOCIAL HISTORY: Denies alcohol, tobacco, drugs Medications and Allergies Allergies Allergy/AdvReac Type Severity Reaction Status Date / Time Penicillins Allergy Rash Verified 11/05/13 23:35 Home Medications Medication Instructions Recorded Confirmed Last Taken Type Ciprofloxacin HCl [Cipro] 500 mg PO Q12H #20 tab 11/06/13 12/28/17 Unknown Rx HYDROcodone/APAP 7.5-325 [[place] 1 each PO Q6HR PRN #20 tablet 11/06/13 12/28/17 Unknown Rx 7.5/325 mg] Ondansetron [Zofran Odt] 4 mg PO Q4H PRN #10 tab.rapdis 11/06/13 12/28/17 Unknown Rx Insulin Aspart Prot/Aspart(Nf) 4 units SQ QACHS 12/09/16 12/28/17 Unknown History [Novolog Mix 70/30] Insulin Detemir [Levemir VIAL] 20 unit SQ QHS 12/09/16 12/28/17 Unknown History Active Meds: Active Medications Sodium Chloride (Nacl 0.9% 1000 Ml) 1,000 mls @ 125 mls/hr IV ONCE ONE Stop: 12/29/17 03:26 Last Admin: 12/28/17 19:27 Dose: 125 mls/hr Exam - Physical Exam Narrative exam: Gen. appearance: Patient lying in bed in no acute distress HEENT: Normocephalic/atraumatic, pupils equal round reactive to light, extra alkaline movement intact, no scleral icterus, no JVD or thyromegaly or nodule, neck is supple, mucous membrane moist, no erythema or exudate Heart: S1-S2, regular rate and rhythm Lungs: Decreased breath sounds bilateral breathing comfortable Abdomen: Positive bowel sounds, nontender, nondistended, no organomegaly Extremities: No edema, cyanosis, clubbing Neuro:: Oriented 3 , cranial nerves II-12 intact, speech, motor intact Skin: No rash, nodules, warm dry - Constitutional Vitals: Temp Pulse Resp BP Pulse Ox 98.0 F 110 H 19 160/102 99 12/28/17 18:28 12/28/17 22:00 12/28/17 22:00 12/28/17 22:00 12/28/17 22:00 Results - Labs CBC & Chem 7: 12/28/17 12:21 12/28/17 19:30 Labs: Abnormal lab results 12/28/17 12/28/17 12/28/17 Range/Units 12:21 12:21 12:21 Lymph % (Auto) 7.5 L (13.4-35.0) % Lymph # 0.7 L (1.2-5.4) K/mm3 Seg Neutrophils % 87.2 H (40.0-70.0) % Seg Neutrophils # 8.5 H (1.8-7.7) K/mm3 VBG pH 7.295 L (7.320-7.420) Sodium 133 L (137-145) mmol/L Potassium 6.5 H* (3.6-5.0) mmol/L Chloride 96.7 L (98-107) mmol/L BUN 47 H (9-20) mg/dL Creatinine 8.4 H (0.8-1.5) mg/dL Glucose 366 H (75-100) mg/dL POC Glucose (70-105) Calcium 7.2 L (8.4-10.2) mg/dL Urine WBC (Auto) (0.0-6.0) /HPF 02/19/18 02/19/18 02/19/18 Range/Units 12:24 17:34 19:30 Lymph % (Auto) (13.4-35.0) % Lymph # (1.2-5.4) K/mm3 Seg Neutrophils % (40.0-70.0) % Seg Neutrophils # (1.8-7.7) K/mm3 VBG pH (7.320-7.420) Sodium (137-145) mmol/L Potassium (3.6-5.0) mmol/L Chloride (98-107) mmol/L BUN 50 H (9-20) mg/dL Creatinine 9.1 H (0.8-1.5) mg/dL Glucose 65 L (75-100) mg/dL POC Glucose 223 H (70-105) Calcium 7.6 L (8.4-10.2) mg/dL Urine WBC (Auto) 29.0 H (0.0-6.0) /HPF Assessment and Plan Assessment Fluid overload End-stage renal disease on dialysis Diarrhea Diabetes Plan Admit to medicine Consult renal for dialysis Send stool for studies, check fingersticks and initiate insulin sliding scale DVT prophylaxis
[2017-12-28] MEDS ORDERED: D50W (25GM) Syringe IV PRN (23:02)
[2017-12-28] MEDS ORDERED: TYLENOL PO PRN (23:02)
[2017-12-28] MEDS ORDERED: PERCOCET 5/325 PO PRN (23:02)
[2017-12-28] MEDS ORDERED: DULCOLAX PR PRN (23:02)
[2017-12-28] MEDS ORDERED: ZOFRAN IV PRN (23:02)
[2017-12-29] MEDS: APRESOLINE IV PRN ×2 (02:44→12:34)
[2017-12-29 05:57] LABS: Basophils % (Auto) 0.6 % (0.0-1.8); Eosinophils # (Auto) 0.2 K/mm3 (0.0-0.4); Eosinophils % (Auto) 2.6 % (0.0-4.3); Hemoglobin 10.4 gm/dl (11.8-15.2); Lymphocytes # (Auto) 1.6 K/mm3 (1.2-5.4); Lymphocytes % (Auto) 21.6 % (13.4-35.0); Mean Corpuscular HGB Conc 34 % (32-34); Mean Corpuscular Hemoglobin 29 pg (28-32); Mean Corpuscular Volume 87 fl (84-94); Monocytes # (Auto) 0.6 K/mm3 (0.0-0.8); Monocytes % (Auto) 7.2 % (0.0-7.3); Platelet Count 106 K/mm3 (140-440); Red Blood Count 3.56 M/mm3 (3.65-5.03); Red Cell Distribution Width 14.3 % (13.2-15.2)
[2017-12-29 06:15] LABS: Calcium 6.9 mg/dL (8.4-10.2)
[2017-12-29] MEDS ORDERED: NACL 0.9% 100 ML IV PRN ×2 (09:20→11:50)
[2017-12-29] MEDS ORDERED: HEPARIN 10,000 UNITS/10 ML IV PRN (09:20)
[2017-12-29] MEDS ORDERED: HEPARIN IV PRN (09:20)
--- NOTE | 2017-12-29 09:22 | Consultation ---
History of Present Illness - Reason for Consult Consult date: 12/29/17 end stage renal disease - History of Present Illness Mr. Barker is a 32 yo w/ ESRD on HD TTS who reports being in usual state of health until when he began experiencing nausea/vomiting. He denies sick contacts, change in eating pattern. He denies abdominal pain, diarrhea. Mr. Barker also reports generalized weakness and states that he was unable to go to dialysis on Thursday. He arranged to go on Thursday but continued to feel poorly. He presented to the ED for further evaluation. Past History Past Medical History: diabetes, ESRD (x 2-3 months), hypertension Past Surgical History: No surgical history Social history: no significant social history Medications and Allergies Allergies Allergy/AdvReac Type Severity Reaction Status Date / Time Penicillins Allergy Rash Verified 11/05/13 23:35 Home Medications Medication Instructions Recorded Confirmed Last Taken Type Ciprofloxacin HCl [Cipro] 500 mg PO Q12H #20 tab 11/06/13 12/28/17 Unknown Rx HYDROcodone/APAP 7.5-325 [[place] 1 each PO Q6HR PRN #20 tablet 11/06/13 12/28/17 Unknown Rx 7.5/325 mg] Ondansetron [Zofran Odt] 4 mg PO Q4H PRN #10 tab.rapdis 11/06/13 12/28/17 Unknown Rx Insulin Aspart Prot/Aspart(Nf) 4 units SQ QACHS 12/09/16 12/28/17 Unknown History [Novolog Mix 70/30] Insulin Detemir [Levemir VIAL] 20 unit SQ QHS 12/09/16 12/28/17 Unknown History Active Meds: Active Medications Acetaminophen (Tylenol) 650 mg PO Q4H PRN PRN Reason: Pain MILD(1-3)/Fever >100.5/ANNA Bisacodyl (Dulcolax) 10 mg [place] QDAY PRN PRN Reason: Constipation unrelieved by MOM Dextrose (D50w (25gm) Syringe) 50 ml IV PRN PRN PRN Reason: Hypoglycemia Enoxaparin Sodium (Lovenox) 30 mg SUB-Q QDAY OXANA Hydralazine HCl (Apresoline) 5 mg IV Q6H PRN PRN Reason: elevated blood pressure Last Admin: 12/29/17 02:44 Dose: 5 mg Insulin Aspart (Novolog) 0 units SUB-Q ACHS OXANA PRN Reason: Protocol Insulin Detemir (Levemir) 20 units SUB-Q QHS OXANA Ondansetron HCl (Zofran) 4 mg IV Q8H PRN PRN Reason: N/V unrelieved by Reglan Oxycodone/Acetaminophen (Percocet 5/325) 1 tab PO Q6H PRN PRN Reason: Pain, Moderate (4-6) Review of Systems All systems: negative Gastrointestinal: nausea, vomiting Exam - Vital Signs Vital signs: Vital Signs Temp Pulse Resp BP Pulse Ox 98.7 F 99 H 18 157/107 99 12/28/17 11:57 12/28/17 11:57 12/28/17 11:57 12/28/17 11:57 12/28/17 11:57 - General Appearance General appearance: well-developed, well-nourished EENT: ATNC Respiratory: Clear to Ascultation Heart: regular, S1S2 Gastrointestinal: Present: normal. Absent: tenderness, distended Integumentary: no rash Neurologic: no focal deficit, alert and oriented x3 Musculoskeletal: Present: other (no edema) Psychiatric: cooperative Results - Lab Results 12/29/17 05:19 12/29/17 05:19 Most recent lab results Calcium 6.9 mg/dL (8.4-10.2) L 12/29/17 05:19 Assessment and Plan Impression: * End stage renal disease on hemodialysis * Nausea/vomiting - ?viral gastroenteritis vs uremia * Hypertension * DM Plan: * Hemodiaylsis today - UF as tolerated * Continue HD TTS schedule * Symptomatic management per primary team * Renal diet * Epogen TIW prn
[2017-12-29] MEDS: LOVENOX SUB-Q SCH (09:36)
[2017-12-29] MEDS: NOVOLOG SUB-Q SCH ×4 (09:38→22:47)
--- NOTE | 2017-12-29 11:30 | Progress Note ---
Assessment and Plan Assessment and plan: ESRD. Continue hemodialysis per nephrology. Hyperkalemia. Resolved. Diabetes mellitus type 2. Continue Accu-Cheks and sliding scale insulin. Diarrhea. Follow-up stool studies. Consider empiric IV antibiotics. History Interval history: No new issues overnight. Hospitalist Physical - Constitutional Vitals: Temp Pulse Resp BP Pulse Ox 98.6 F 96 H 20 152/99 99 12/29/17 05:41 12/29/17 02:44 12/29/17 01:55 12/29/17 05:41 12/29/17 01:55 General appearance: Present: no acute distress, well-nourished - EENT Eyes: Present: PERRL, EOM intact ENT: hearing intact, clear oral mucosa, dentition normal - Neck Neck: Present: supple, normal ROM - Respiratory Respiratory effort: normal Respiratory: bilateral: CTA - Cardiovascular Rhythm: regular Heart Sounds: Present: S1 & S2. Absent: gallop, rub - Extremities Extremities: no ischemia, No edema, Full ROM - Abdominal General gastrointestinal: soft, non-tender, non-distended, normal bowel sounds - Integumentary Integumentary: Present: clear, warm, dry - Neurologic Neurologic: CNII-XII intact, moves all extremities Results - Labs CBC & Chem 7: 12/29/17 05:19 12/29/17 05:19 Labs: Laboratory Last Values WBC 7.6 K/mm3 (4.5-11.0) 12/29/17 05:19 RBC 3.56 M/mm3 (3.65-5.03) L 12/29/17 05:19 Hgb 10.4 gm/dl (11.8-15.2) L 12/29/17 05:19 Hct 31.0 % (35.5-45.6) L D 12/29/17 05:19 MCV 87 fl (84-94) 12/29/17 05:19 MCH 29 pg (28-32) 12/29/17 05:19 MCHC 34 % (32-34) 12/29/17 05:19 RDW 14.3 % (13.2-15.2) 12/29/17 05:19 Plt Count 106 K/mm3 (140-440) L 12/29/17 05:19 Lymph % (Auto) 21.6 % (13.4-35.0) 12/29/17 05:19 [place] % (Auto) 7.2 % (0.0-7.3) 12/29/17 05:19 Eos % (Auto) 2.6 % (0.0-4.3) 12/29/17 05:19 Baso % (Auto) 0.6 % (0.0-1.8) 12/29/17 05:19 Lymph # 1.6 K/mm3 (1.2-5.4) 12/29/17 05:19 [place] # 0.6 K/mm3 (0.0-0.8) 12/29/17 05:19 Eos # 0.2 K/mm3 (0.0-0.4) 12/29/17 05:19 Baso # 0.0 K/mm3 (0.0-0.1) 12/29/17 05:19 Seg Neutrophils % 68.0 % (40.0-70.0) 12/29/17 05:19 Seg Neutrophils # 5.2 K/mm3 (1.8-7.7) 12/29/17 05:19 VBG pH 7.295 (7.320-7.420) L 12/28/17 12:21 Sodium 140 mmol/L (137-145) 12/29/17 05:19 Potassium 4.9 mmol/L (3.6-5.0) 12/29/17 05:19 Chloride 105.3 mmol/L (98-107) 12/29/17 05:19 Carbon Dioxide 23 mmol/L (22-30) 12/29/17 05:19 Anion Gap 17 mmol/L 12/29/17 05:19 BUN 54 mg/dL (9-20) H 12/29/17 05:19 Creatinine 8.8 mg/dL (0.8-1.5) H 12/29/17 05:19 Estimated GFR 9 ml/min 12/29/17 05:19 BUN/Creatinine Ratio 6 % 12/29/17 05:19 Glucose 172 mg/dL (75-100) H 12/29/17 05:19 POC Glucose 159 (70-105) H 12/29/17 08:19 Calcium 6.9 mg/dL (8.4-10.2) L 12/29/17 05:19 Urine Color Yellow (Yellow) 12/28/17 12:24 Urine Turbidity Clear (Clear) 12/28/17 12:24 Urine pH 5.0 (5.0-7.0) 12/28/17 12:24 Ur Specific [place] 1.021 (1.003-1.030) 12/28/17 12:24 Urine Protein >500 mg/dL (Negative) 12/28/17 12:24 Urine Glucose (UA) >=500 mg/dL (Negative) 12/28/17 12:24 Urine Ketones Tr mg/dL (Negative) 12/28/17 12:24 Urine Blood Neg (Negative) 12/28/17 12:24 Urine Nitrite Neg (Negative) 12/28/17 12:24 Urine Bilirubin Neg (Negative) 12/28/17 12:24 Urine Urobilinogen < 2.0 mg/dL (<2.0) 12/28/17 12:24 Ur Leukocyte Esterase Neg (Negative) 12/28/17 12:24 Urine WBC (Auto) 29.0 /HPF (0.0-6.0) H 12/28/17 12:24 Urine RBC (Auto) 6.0 /HPF (0.0-6.0) 12/28/17 12:24 U Epithel Cells (Auto) 1.0 /HPF (0-13.0) 12/28/17 12:24 Urine Bacteria (Auto) 1+ /HPF (Negative) 12/28/17 12:24 Urine Mucus Few /HPF 12/28/17 12:24 Urine Yeast (Budding) Few /HPF 12/28/17 12:24
[2017-12-29] MEDS ORDERED: NACL 0.9 (PRIMING MACHINE ONLY DIALYSIS) MC ONE (12:09)
[2017-12-29 14:52] LABS: Hepatitis A Antibody IgM Non-Reactive (NonReactive); Hepatitis B Core IgM Non-Reactive (NonReactive); Hepatitis B Surface Antigen Non-Reactive (Negative); Hepatitis C Virus Antibody Non-Reactive (NonReactive)
[2017-12-29] MEDS ORDERED: LEVEMIR SUB-Q SCH (22:00)
[2017-12-29] MEDS ORDERED: REGLAN IV PRN (22:12)
[2017-12-29] MEDS: REGLAN IV PRN (22:45)
[2017-12-30] MEDS: APRESOLINE IV PRN ×2 (00:45→06:05)
--- NOTE | 2017-12-30 08:36 | Discharge Summary ---
Providers - Providers Date of Admission: 12/28/17 22:34 Date of discharge: 12/30/17 Attending physician: GYPSY COLON 12/28/17 23:02 Consult to Physician [CONS] Routine Consulting Provider: LUIS ANGEL REA Reason For Exam: hd Place consult to:: Dr. Rea Notified:: Sobia MALHOTRA Was contact made?: Yes If yes, spoke with:: Dr. Kim Time called:: 09:04 Primary care physician: [employer]ER[facility]IST Hospitalization Reason for admission: missed HD Condition: Stable Hospital course: Mr. Barker is a 32 yo w/ ESRD on HD TTS who reports being in usual state of health until when he began experiencing nausea/vomiting. He denied sick contacts, change in eating pattern. He denied abdominal pain, diarrhea. Mr. Barker also reported generalized weakness and stated that he was unable to go to dialysis on Thursday. He arranged to go on Thursday but continued to feel poorly. He presented to the ED for further evaluation. The patient was admitted with diagnosis of fluid/volume overload from his missed hemodialysis. Patient received dialysis during hospitalization and was seen by nephrology consultation. Patient returned to his baseline. Patient is felt to have received maximal hospital benefit and thus will be discharged home. Dedicated discharge time 32 minutes. Disposition: - TO HOME OR SELFCARE Time spent for discharge: 32 - Discharge Diagnoses (1) ESRD (end stage renal disease) on dialysis Status: Acute (2) ESRD needing dialysis Status: Acute (3) Renal failure Status: Acute Qualifiers: Renal failure chronicity: chronic Chronic kidney disease stage: unspecified stage Qualified Code(s): N18.9 - Chronic kidney disease, unspecified Core Measure Documentation - Palliative Care Palliative Care/ Comfort Measures: Not Applicable - Core Measures Any of the following diagnoses?: none Exam - Constitutional Vitals: Temp Pulse Resp BP Pulse Ox 99.0 F 97 H 18 155/101 99 12/30/17 05:33 12/30/17 05:33 12/30/17 05:33 12/30/17 05:33 12/30/17 05:33 General appearance: Present: no acute distress, well-nourished - EENT Eyes: Present: PERRL ENT: hearing intact, clear oral mucosa - Neck Neck: Present: supple, normal ROM - Respiratory Respiratory effort: normal Respiratory: bilateral: CTA - Cardiovascular Heart Sounds: Present: S1 & S2. Absent: rub, click - Extremities Extremities: pulses symmetrical, No edema Peripheral Pulses: within normal limits - Abdominal General gastrointestinal: Present: soft, non-tender, non-distended, normal bowel sounds Male genitourinary: Present: normal - Integumentary Integumentary: Present: clear, warm, dry - Musculoskeletal Musculoskeletal: gait normal, strength equal bilaterally - Psychiatric Psychiatric: appropriate mood/affect, intact judgment & insight - Neurologic Neurologic: CNII-XII intact, moves all extremities Plan Activity: no restrictions Weight Bearing Status: Full Weight Bearing Diet: renal Follow up with: PRIMARY CAREMD [Primary Care Provider] - 3-5 Days NAYANA KIM MD [Staff Physician] - 7 Days Prescriptions: Insulin Detemir [Levemir VIAL] 20 unit SQ QHS #30 vial oxyCODONE /ACETAMINOPHEN [Percocet 5/325 mg] 1 tab PO Q6H PRN #10 tablet PRN Reason: Pain, Moderate (4-6)
[2017-12-30] MEDS: REGLAN IV PRN (09:11)
[2017-12-30] MEDS: LOVENOX SUB-Q SCH (09:11)
[2017-12-30] MEDS: NOVOLOG SUB-Q SCH ×2 (09:12→11:54)
[2017-12-30 12:34] VITALS: BP 141/91
--- NOTE | 2017-12-30 15:47 | Progress Note ---
Assessment and Plan Impression: * End stage renal disease on hemodialysis * Nausea/vomiting - resolved * DM Plan: * No acute indication for HD today * Continue HD TTS schedule * Symptomatic management per primary team * Renal diet * Epogen TIW prn Subjective Date of service: 12/30/17 Interval history: Patient c/o generalized malaise Objective - Vital Signs Vital signs: Vital Signs - 12hr 12/30/17 12/30/17 12/30/17 04:00 05:33 10:15 Temperature 99.0 F Pulse Rate 95 H 97 H Respiratory 18 Rate Blood Pressure 155/101 Blood Pressure [Left] O2 Sat by Pulse 99 95 Oximetry 12/30/17 12:33 Temperature 98.3 F Pulse Rate 98 H Respiratory 18 Rate Blood Pressure Blood Pressure 141/91 [Left] O2 Sat by Pulse 100 Oximetry - General Appearance General appearance: well-developed, well-nourished EENT: ATNC Respiratory: Present: Clear to Ascultation Cardiology: regular, S1S2 Gastrointestinal: normal, no tenderness, no distended Integumentary: no rash Neurologic: no focal deficit, alert and oriented x3 Musculoskeletal: other (no edema) Psychiatric: cooperative - Lab 12/29/17 05:19 12/29/17 05:19 Most recent lab results Calcium 6.9 mg/dL (8.4-10.2) L 12/29/17 05:19
== END 2017-12-30 18:00 | disposition home or self-care (01) | DRG 637 ==
LOC: ED 11:49 → 4A 22:34
PROVIDERS: ADMIT Internal Medicine; ATTEND Hospitalist
PROC: 5A1D70Z Performance of Urinary Filtration, Intermittent, Less than 6 Hours Per Day (ICD-10-PCS; principal; 2017-12-29)
DX: E11.65 Type 2 diabetes mellitus with hyperglycemia (principal); N18.6 End stage renal disease; I12.0 Hypertensive chronic kidney disease with stage 5 chronic kidney disease or end stage renal disease; E87.70 Fluid overload, unspecified; Z88.0 Allergy status to penicillin; Z90.49 Acquired absence of other specified parts of digestive tract; E87.5 Hyperkalemia; E11.22 Type 2 diabetes mellitus with diabetic chronic kidney disease
CPT/HCPCS: 36415; 80048; 80074; 81001; 82805; 82962; 85025; 94640; 96365; 96375; J0360; J0610; J1644; J1650; J1815; J1818; J2405; J2765; J7030

== ENCOUNTER 2018-02-28 08:29 | Emergency (ER) | payer MEDICARE ==
[2018-02-28 08:43] VITALS: BP 134/85
[2018-02-28 09:05] LABS: Basophils # (Auto) 0.1 K/mm3 (0.0-0.1); Basophils % (Auto) 0.7 % (0.0-1.8); Eosinophils # (Auto) 0.3 K/mm3 (0.0-0.4); Hematocrit 27.2 % (35.5-45.6); Hemoglobin 9.2 gm/dl (11.8-15.2); Lymphocytes # (Auto) 1.3 K/mm3 (1.2-5.4); Lymphocytes % (Auto) 15.3 % (13.4-35.0); Mean Corpuscular HGB Conc 34 % (32-34); Mean Corpuscular Hemoglobin 30 pg (28-32); Mean Corpuscular Volume 88 fl (84-94); Monocytes # (Auto) 0.8 K/mm3 (0.0-0.8); Monocytes % (Auto) 9.3 % (0.0-7.3); Platelet Count 201 K/mm3 (140-440); Red Cell Distribution Width 15.9 % (13.2-15.2)
[2018-02-28 09:17] LABS: Calcium 7.9 mg/dL (8.4-10.2)
== END 2018-02-28 09:43 | disposition left against medical advice (07) ==
LOC: ED 08:29
DX: R11.0 Nausea (principal); Z53.21 Procedure and treatment not carried out due to patient leaving prior to being seen by health care provider
CPT/HCPCS: 36415; 80048; 82805; 82962; 85025